=== PATIENT | male | born 1955 | race Caucasian/White ===

== ENCOUNTER 2017-10-18 14:48 | Emergency (ER) | payer OTHER ==
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
--- NOTE | 2017-10-19 17:27 | CR ---
Left forearm: Two views of the left forearm were obtained. No fracture or other bony abnormality is seen. Impression: 1. No abnormality is identified on two-view left forearm exam. Diagnostic code #1
--- NOTE | 2017-10-19 17:27 | CR ---
Left hand: Four views of the left hand were obtained. Fifth finger shows flexion deformities of the DIP and PIP joints. Joint space narrowing is noted within the second MCP joint. Other joint spaces are preserved. No acute fracture or dislocation is seen. Impression: 1. Fifth finger shows flexion deformities of the DIP and PIP joints. Please rule out any soft tissue extensor abnormalities. 2. Joint space narrowing within the second MCP joint. 3. No acute bony abnormality is identified. Diagnostic code #2
== END 2017-10-18 19:58 | disposition home or self-care (01) ==
LOC: JD.ED 14:48
DX: S63.502A Unspecified sprain of left wrist, initial encounter (principal); F17.210 Nicotine dependence, cigarettes, uncomplicated; X50.0XXA Overexertion from strenuous movement or load, initial encounter
CPT/HCPCS: 73090-26-LT; 73090-LT; 73130-26-LT; 73130-LT; 99283